=== PATIENT | female | born 1975 | race Caucasian/White ===

== ENCOUNTER 2023-03-04 07:50 | Day surgery (SDC) | payer OTHER, SELFPAY ==
[2023-03-04] VITALS (20 sets, daily range): BP systolic 91–122; BP diastolic 58–93; PULSE 53–85; RESP 16–20; TEMP 35.9–37; O2SAT 86–99; BMI 21.4
--- NOTE | 2023-03-04 | CRLHL7_ITS ---
For Patients: As a result of the Century Cures Act, medical imaging exams and procedure reports are released immediately into your electronic medical record. You may view this report before your referring provider. If you have questions, please contact your health care provider. PLEASE SEE LEFT BREAST WIRE LOCALIZATION OF SAME DAY. CRL:david DAI/Dictated by: Terry Callaway MD @ 03/04/2023 12:37:00 PM (Electronically Signed)
[2023-03-04 08:12] LABS: Ur HCG Qualitative* Negative (Negative)
[2023-03-04] MEDS: LACTATED RINGERS 1000 ML 1,000 ML 100 ML IV (08:40)
[2023-03-04] MEDS: ETHYL CHLORIDE 1 APPLICATION 1 APPLIC TOPICAL (08:41)
[2023-03-04] MEDS: SODIUM CHLORIDE 0.9 % (FLUSH) 10 ML SYRINGE IVF (08:41)
--- NOTE | 2023-03-04 09:00 | CRLHL7_ITS ---
For Patients: As a result of the Century Cures Act, medical imaging exams and procedure reports are released immediately into your electronic medical record. You may view this report before your referring provider. If you have questions, please contact your health care provider. INDICATION: Malignant neoplasm of the LEFT breast. Injection for sentinel lymph node scintigraphy. PROCEDURE: The on-site staff obtained informed consent. The on-site staff utilized sterile technique. Subsequently, the on-site staff injected 470 microcuries of technetium-filtered sulfur colloid within an intradermal location of the left periareolar breast. No immediate complications were documented. No subsequent imaging. IMPRESSION: LEFT breast injection for sentinel lymph node scintigraphy. Dictated by Ethan Donovan MD @ 03/04/2023 2:18:46 PM DAI/Dictated by: Ethan Donovan MD @ 03/04/2023 12:48:00 PM (Electronically Signed)
--- NOTE | 2023-03-04 09:15 | CRLHL7_ITS ---
For Patients: As a result of the Cures Act, medical imaging exams and procedure reports are released immediately into your electronic medical record. You may view this report before your referring provider. If you have questions, please contact your health care provider. LEFT AXILLARY LYMPH NODE WIRE LOCALIZATION USING ULTRASOUND GUIDANCE CLINICAL HISTORY: LEFT BREAST CANCER, PRESENTS FOR DEFINITIVE SURGICAL TREATMENT LATERALITY: LEFT axilla. LESION: Previously biopsied LEFT axillary lymph node. LOCALIZATION WIRE: [place] hookwire. TECHNIQUE: The localization wire was placed using real-time ultrasound guidance with image documentation. Cranial-caudal and medial-lateral digital mammograms were obtained after localization wire placement. CONSENT and TIME OUT: The procedure, risks, and alternatives were explained to the patient and a consent was signed. [place] Protocol was followed including pre-procedure verification that relevant information/documentation was available, reviewed and properly matched to the patient; consent accurate and complete; and equipment and supplies available. Time Out was conducted just prior to starting procedure to verify the four required elements: patient identity, correct side/site marked (if applicable), procedure, relevant images/results properly labeled and displayed (if applicable). PROCEDURE: The skin was prepped with ChloraPrep and 5 cc of 1% lidocaine was injected for local anesthesia. The localization wire was placed within or near the targeted left axillary lymph node lesion using ultrasound guidance. The patient tolerated the procedure well. PROXIMITY OF WIRE TO LESION: The wire is present within the lymph node adjacent to the clip. IMPRESSION: Successful LEFT axillary lymph wire localization. ACR not applicable Dictated by Terry Callaway MD @ 03/04/2023 10:23:40 AM/david DAI/Dictated by: Terry Callaway MD @ 03/04/2023 10:23:00 AM (Electronically Signed)
[2023-03-04] MEDS: CEFAZOLIN 1 GM inj IVP (11:29)
[2023-03-04] MEDS: ISOSULFAN BLUE 5 ML VIAL INJECTION (11:36)
--- NOTE | 2023-03-04 11:39 | PM.GSPRC ---
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 Post-op diagnosis: Same Type of Procedure: 1. Bilateral skin sparing mastectomy 2. Left axillary sentinel node biopsy 3. Left axillary node biopsy with preoperative wire localization 4. Left axillary dissection Indications: The patient is a 47-year-old female who has left-sided invasive ductal carcinoma, ERPR positive, HER2 negative. She is status post neoadjuvant chemotherapy at an outside facility. This was done for the extensive tumor as well as positive lymph nodes. She has completed her neoadjuvant chemotherapy and presented to discuss surgical options. She was interested in mastectomy with reconstruction as the tumor was felt to extensive for lumpectomy given her breast size. Because she is a smoker, and may need radiation, it was felt that delayed reconstruction would be the best option for her. Procedure Description: After discussion of risks and benefits, the patient was brought to the operating room and placed supine on the operating table. General anesthesia was induced. 1 hr to incision, radiotracer was injected into the dermis the left breast just above the areola. 10 min prior to the incision I injected 3 ml isosulfan blue dye into the dermis above the areola. This was massaged for 3 min. Once this was completed, the area was prepped and draped sterilely. A time-out was then completed. We began on the left side. A transverse incision was created using the markings which had been created by the patient's plastic surgeon preoperatively. Subcutaneous flaps were created using cautery. Care was taken to stay in the avascular plane between the breast tissue in the subcutaneous tissue. Dissection was taken superiorly to the clavicle, medially to the sternum, inferiorly to the inframammary fold, and laterally to the latissimus. Once the flaps were created, the breast was taken off of the chest wall, taking the pectoralis fascia with. Small bleeding vessels were cauterized. This was marked with a stitch at the superior aspect and sent for margins. The pathologist noted a chemo response, however there was an area of DCIS which appeared to be close to the anterior superior margin on the lateral aspect. Because there was concern on imaging of the proximity of the tumor to the skin, based on the location of the area of concern, I elected to excise another 2 cm of skin overlying this area. I did examine the specimen with the pathologist to confirm that the skin that I plan to excise was over the area of concern. A knife was then used to re-excise this margin. I then marked this v-shaped excision with a single stitch superiorly and a double stitch laterally. This was sent to pathology for permanent section. Attention was then turned to the sentinel lymph node biopsy. The probe was brought into the field. A strong signal was noted and dissection was taken down through the clavipectoral fascia into the axillary fat. I 1st identified the wire localize node and pulled the wire through the skin into the wound. I traced this down until a node was encountered. This node did have a very strong signal of 2000. This was removed and sent 1st to x-ray for specimen mammography to confirm that the clip was present, and for frozen section. X-ray did confirm the clip was present. In the meantime I examined the axilla. The signal was less than 200, however I did see a blue lymphatic channel and dissecting this down I identified a small lymph node which had a weak signal of 150. This was dissected out and sent as sentinel lymph node 2. Once this was done there was no further signal in the axilla and there were no further lymphatic channels to blue nodes. The frozen section on the sentinel lymph node returned positive for cancer and therefore an axillary dissection was performed. The pectoralis major muscle was retracted medially and the lateral aspect of pectoralis minor was similarly retracted medially. The axillary fat was gently teased down from the axillary vein, identifying it as the superior border of the dissection. A small branching vein was ligated with Vicryl. Once identifying the superior border, dissection proceeded medially. The maylin tissue was dissected free of the chest wall, identifying the serratus muscle with care to avoid the long thoracic nerve. Thoracodorsal nerve was identified posteriorly and in the middle. This was preserved as the maylin tissue was dissected free from it. The maylin tissue was dissected free posterior laterally on the latissimus muscle. An intercostal brachial nerves were attempted to be spared however because they intersected the specimen, 1 of the nerves had to be divided. Small clips as well as ties were used to divide and ligate small bleeding vessels. Clips were also used to ligate lymphatic channels. This tissue was then sent to pathology as axillary node dissection. I then turned my attention to the right side. A new set of instruments were used and also our outer gloves were changed. An identical incision was made and dissection was taken down into the subcutaneous tissue creating skin flaps superiorly to the clavicle, medially to the sternum, inferiorly to the superior rectus sheath and laterally to the latissimus. The breast tissue was then removed from the pectoralis muscle, taking the pectoralis fascia. Hemostasis was achieved with cautery. A stitch was placed to orient the specimen and it was sent to pathology. Drains were placed - one 15 Filipino drain in the right chest, one in the left chest space and one in the left axilla. These were secured in place with nylon suture. The wounds were then closed with interrupted Vicryl dermal suture and Monocryl running subcuticular suture. Sterile dressings were applied. Instrument sponge and needle counts were correct. The patient was then woken and transported to the recovery area in stable condition. ? The patient tolerated the procedure well. Findings: 1. Left mastectomy specimen with close margins to the skin anterior laterally; skin resected in this area after examining the specimen with the pathologist. 2. Left axillary sentinel node 1 which was the previously biopsied wire localize node did have a 2 mm focus of metastatic cancer 3. Left axillary wire localized node confirmed on x-ray to contain the biopsy clip. 4. left axillary sentinel node 2 negative for metastatic carcinoma 5. Right breast without any obvious abnormalities. Implants: Drains: 15 Filipino right chest wall drain 15 Filipino left chest wall drain 15 Filipino left axillary drain Anesthesia: GETA Surgeon: Johana Gil MD Estimated blood loss (mL): 100 Specimen: Other Additional Specimen Information: 1. Left breast, stitch superior 2. [place] lymph node 1/wire localize node 3. [place] lymph node 2. 4. Right breast, stitch superior 5. Re-excision of left breast anterior lateral/superior margin. Single stitch superior, double stitch lateral 6. Left axillary dissect Condition: stable Disposition: PACU Date of procedure: 03/04/23 [place] Node Biopsy for Breast Cancer Operation Performed with Curative Intent: Yes Tracers used to Identify sentinel nodes in the upfront surgery (non-neoadjuvant) setting: N/A Tracers used to identify sentinel nodes in the neoadjuvant setting: Dye and Radioactive Tracer All nodes (colored or non-colored) present at the end of a dye filled lymphatic channel were removed: Yes All significantly radioactive nodes were removed: Yes All palpably suspicious nodes were removed: Yes Biopsy proven positive nodes marked with clips prior to chemotherapy were identified and removed: Yes Axillary Lymph Node Dissection Operation Performed with Curative Intent: Yes Resection performed within the boundaries of axillary vein, serratus anterior, & latissimus dorsi: Yes Nerves Identified & Preserved during Dissection: Long Thoracic Nerve and Thoracodorsal Nerve Attempts were made to spare the intercostal brachial cutaneous nerves during dissection: Yes Level III Nodes were removed: No
--- NOTE | 2023-03-04 12:28 | CRLHL7_ITS ---
For Patients: As a result of the Cures Act, medical imaging exams and procedure reports are released immediately into your electronic medical record. You may view this report before your referring provider. If you have questions, please contact your health care provider. LEFT AXILLARY NODE SPECIMEN CLINICAL HISTORY: LEFT axillary lymph node resection. COMPARISON: 01/08/2023. FINDINGS: Two views of the specimen film submitted. The specimen contains the previously biopsied lymph node along with the biopsy clip and localization wire. IMPRESSION: The specimen contains the biopsied mass, biopsy clip and localization wire. ACR not applicable. Dictated by Terry Callaway MD @ 03/05/2023 12:24:00 PM/david DAI/Dictated by: Terry Callaway MD @ 03/05/2023 12:24:00 PM (Electronically Signed)
--- NOTE | 2023-03-04 13:34 | W.PM.NB ---
Nerve Block Nerve Block Time Seen by Provider: Date Seen: 03/04/23 Type of block requested by surgeon for post-operative analgesia: intercostal and intercostal add on Side: bilateral Time out performed: Yes Verification of patient name: Yes Verification of date of : Yes Site marking: site marked Name of person performing procedure: Bobby Continuous monitoring Was continuous monitoring of O2 sat, B/P, monitoring tech, recorded every 15 minutes?: Yes Procedure Checklist: sterile prep, needles and gloves Ultrasound guided. Images saved: Yes Medications given in 5ml increments after negative aspiration: Marcaine %: 0.25 mL: 30 Needle gauge: 20 and Exparel mL: 10 Needle gauge: 20 Patient tolerated procedure well: Yes Block Charges Block Charge (with Pro Fee): Intercostal Nerve Block Use of Ultrasound Machine for Block: Yes- US Guidance/pain block
--- NOTE | 2023-03-04 13:36 | W.ANESCHARGE ---
Anesthesia Charges Start Date/Time Anesthesia Start Date: 03/04/23 Anesthesia Start Time: 11:10 Stop Date/Time Anesthesia Stop Date: 03/04/23 Anesthesia Stop Time: 16:00
--- NOTE | 2023-03-04 16:20 | W.ANESCHARGE ---
Anesthesia Charges Start Date/Time Anesthesia Start Date: 03/04/23 Anesthesia Start Time: 11:10 Stop Date/Time Anesthesia Stop Date: 03/04/23 Anesthesia Stop Time: 16:00
[2023-03-04] MEDS: fentaNYL 100 MCG/2 ML inj 50 MCG IVP (16:23)
[2023-03-04] MEDS: HYDROmorphone 0.5 mg/0.5 ml inj IVP (17:39)
[2023-03-04] MEDS: LACTATED RINGERS 1000 ML 1,000 ML 125 ML IV (17:39)
[2023-03-04] MEDS: NICOTINE 14 mg PATCH 1 PATCH TRANSDERMA (19:00)
[2023-03-04] MEDS: HYDROCODONE-ACETAMIN 5-325 MG 1 TAB PO (21:43)
--- NOTE | 2023-03-04 21:53 | PC.NURSE ---
Pt returned from PACU drowsy, oriented to self and situation. Verbalized 6/10 pain, 0.5mg Dilaudid was given IVP. BP's WNL, HR occasionally briefly bradycardic as low as 53 bpm. Pt did desat to 87% on RA, she was placed on 1-2L/O2 via NC and SpO2 is now 92-95%. Jacky wrap to chest intact, dressings beneath JACKY wrap C,D,&I. Ice pack's placed on chest/left axilla as tolerated. [address] and labeled. DEMI 1 & 3 have had minimal bloody output while DEMI 2 has had Advanced to regular diet without difficulty. Pt initially up to BSC with assist x2, this was well tolerated. She is now ambulating to the BR with SBA and continues to have adequate urine output. Family in to visit her at bedside this evening and she plans to discharge to home with her family tomorrow.
[2023-03-05] MEDS: diphenhydrAMINE 50 MG/ML inj 25 MG IVP (00:27)
[2023-03-05] MEDS: LACTATED RINGERS 1000 ML 1,000 ML 125 ML IV ×2 (00:30→09:30)
[2023-03-05] MEDS: HYDROCODONE-ACETAMIN 5-325 MG 1 TAB PO ×2 (02:47→08:17)
[2023-03-05 03:00] VITALS: BP 131/89; PULSE 76; RESP 16; TEMP 36.4; O2SAT 99
--- NOTE | 2023-03-05 06:59 | PC.NURSE ---
End of Shift: Pt was pleasant and cooperative throughout shift, remained AO. Reported pain in chest between 6-8/10, [place] administered x1. DEMI drains patent and draining. Most output from DEMI #2 at 30cc. Pt independent in room, requires assistance with unhooking pulse ox and IV pole. Continent with bladder, no BM throughout shift. Dressings remained in place, CDI. O2 sats between 99-100 on RA.
[2023-03-05 07:00] VITALS: BP 118/74; PULSE 63; RESP 16; TEMP 36.4; O2SAT 100
--- NOTE | 2023-03-05 09:11 | PM.GSPN ---
Subjective Subjective Date Seen: 03/05/23 Interval history: Patient is doing okay postoperatively. Her pain is not well controlled with hydrocodone. She tolerated only some water and ice chips. Her drains are putting out minimal amount of bloody serosanguineous fluid. Exam Narrative: Exam Narrative: Chest: The chest was on the low wrapped because the dressing felt tight. Bilateral mastectomy incisions are with clean Steri is with no signs of expanding hematoma. The drains have dark bloody fluid in the bulbs. The chest was rewrapped snug with an Jacky wrap. Const: Vital Signs, click to edit/add: Vital Signs - 24 hr 03/04/23 15:53 03/04/23 15:58 03/04/23 16:05 Temperature 98.6 F Pulse Rate 85 78 70 Pulse Rate [Left P ulse Oximeter] Respiratory Rate 16 16 16 Blood Pressure 107/88 114/92 H 122/85 Blood Pressure [Ri ght Arm] Pulse Oximetry 92 96 98 Oxygen Delivery Me thod Non Rebreather Mas k Non Rebreather Mas k Non Rebreather Mas k Oxygen Flow Rate 2 2 2 03/04/23 16:10 03/04/23 16:15 03/04/23 16:20 Temperature 98.4 F Pulse Rate 66 74 62 Pulse Rate [Left P ulse Oximeter] Respiratory Rate 16 16 16 Blood Pressure 115/93 H 120/84 122/80 Blood Pressure [Ri ght Arm] Pulse Oximetry 99 99 99 Oxygen Delivery Me thod Non Rebreather Mas k Non Rebreather Mas k Non Rebreather Mas k Oxygen Flow Rate 2 2 2 03/04/23 16:25 03/04/23 16:30 03/04/23 17:00 Temperature 98.4 F 96.9 F L Pulse Rate 64 66 Pulse Rate [Left P ulse Oximeter] 64 Respiratory Rate 16 16 16 Blood Pressure 115/82 120/84 Blood Pressure [Ri ght Arm] 114/78 Pulse Oximetry 99 99 94 Oxygen Delivery Me thod Non Rebreather Mas k Non Rebreather Mas k Room Air Oxygen Flow Rate 2 2 03/04/23 17:00 03/04/23 17:15 03/04/23 17:30 Temperature 96.7 F L 97.4 F L 97.5 F L Pulse Rate 53 L Pulse Rate [Left P ulse Oximeter] 66 72 Respiratory Rate 16 16 16 Blood Pressure Blood Pressure [Ri ght Arm] 110/58 L 116/83 111/83 Pulse Oximetry 86 L 92 Oxygen Delivery Me thod Room Air Room Air Room Air Oxygen Flow Rate 03/04/23 17:45 03/04/23 18:00 03/04/23 18:02 Temperature 97.8 F 97.8 F Pulse Rate Pulse Rate [Left P ulse Oximeter] 76 62 Respiratory Rate 16 16 Blood Pressure Blood Pressure [Ri ght Arm] 91/63 114/71 Pulse Oximetry 93 87 L 97 Oxygen Delivery Me thod Room Air Room Air Nasal Cannula Oxygen Flow Rate 2 03/04/23 19:00 03/04/23 20:00 03/04/23 21:00 Temperature Pulse Rate Pulse Rate [Left P ulse Oximeter] 63 54 L 68 Respiratory Rate 16 16 16 Blood Pressure Blood Pressure [Ri ght Arm] 109/78 112/80 92/63 Pulse Oximetry 95 94 94 Oxygen Delivery Me thod Nasal Cannula Nasal Cannula Nasal Cannula Oxygen Flow Rate 1 1 1 03/04/23 22:00 03/04/23 23:00 03/05/23 03:00 Temperature 97.6 F Pulse Rate Pulse Rate [Left P ulse Oximeter] 61 76 Respiratory Rate 16 16 16 Blood Pressure Blood Pressure [Ri ght Arm] 108/70 131/89 Pulse Oximetry 95 99 Oxygen Delivery Me thod Nasal Cannula Nasal Cannula Oxygen Flow Rate 1 Progress Note: A&P Assessment and plan (1) S/P bilateral mastectomy: Status: Acute Plan 47-year-old female s/p bilateral mastectomy and left axillary node dissection POD 1. Patient is doing well overall with minimal drainage in her bilateral drains. However, her pain is not well controlled with [place]. We will switch her to oxycodone and see if that improves her pain control. Patient will advance her diet as tolerated. Patient will be related to be discharged home when her pain is controlled with p.o. medications.
[2023-03-05 11:00] VITALS: BP 107/77; PULSE 61; RESP 16; TEMP 36.6; O2SAT 96
[2023-03-05] MEDS: OXYCODONE 5 MG TABLET PO (12:56)
--- NOTE | 2023-03-05 15:11 | P.DS_ITS ---
DS: Providers Provider Date Seen: 03/05/23 Primary care physician: Not a Local Provider Attending Physician on discharge: Johana Gil MD DS: Diagnosis Discharge Diagnosis (1) S/P bilateral mastectomy: Status: Acute DS: Summary Hospital Course Hospital Course: Patient was admitted to the hospital after she underwent bilateral mastectomy and left axillary node dissection. Patient did well postoperatively. Her pain was not controlled with [place] and she was switched to oxycodone. Patient's pain was better controlled. She was tolerating regular diet. Time Spent with Patient Time attestation: Total time spent providing and/or coordinating discharge services: Exam Narrative: Exam Narrative: Chest: mastectomy incisions are covered with dry and clean steries, there is no erythema or rash. No expanding hematomas. DEMI drains with dark bloody thin serosanguinous fluid in the bulbs. Const: Vital Signs, click to edit/add: Vital Signs - 24 hr 03/04/23 15:53 03/04/23 15:58 03/04/23 16:05 Temperature 98.6 F Pulse Rate 85 78 70 Pulse Rate [Left P ulse Oximeter] Respiratory Rate 16 16 16 Blood Pressure 107/88 114/92 H 122/85 Blood Pressure [Ri ght Arm] Pulse Oximetry 92 96 98 Oxygen Delivery Me thod Non Rebreather Mas k Non Rebreather Mas k Non Rebreather Mas k Oxygen Flow Rate 2 2 2 03/04/23 16:10 03/04/23 16:15 03/04/23 16:20 Temperature 98.4 F Pulse Rate 66 74 62 Pulse Rate [Left P ulse Oximeter] Respiratory Rate 16 16 16 Blood Pressure 115/93 H 120/84 122/80 Blood Pressure [Ri ght Arm] Pulse Oximetry 99 99 99 Oxygen Delivery Me thod Non Rebreather Mas k Non Rebreather Mas k Non Rebreather Mas k Oxygen Flow Rate 2 2 2 03/04/23 16:25 03/04/23 16:30 03/04/23 17:00 Temperature 98.4 F 96.9 F L Pulse Rate 64 66 Pulse Rate [Left P ulse Oximeter] 64 Respiratory Rate 16 16 16 Blood Pressure 115/82 120/84 Blood Pressure [Ri ght Arm] 114/78 Pulse Oximetry 99 99 94 Oxygen Delivery Me thod Non Rebreather Mas k Non Rebreather Mas k Room Air Oxygen Flow Rate 2 2 03/04/23 17:00 03/04/23 17:15 03/04/23 17:30 Temperature 96.7 F L 97.4 F L 97.5 F L Pulse Rate 53 L Pulse Rate [Left P ulse Oximeter] 66 72 Respiratory Rate 16 16 16 Blood Pressure Blood Pressure [Ri ght Arm] 110/58 L 116/83 111/83 Pulse Oximetry 86 L 92 Oxygen Delivery Me thod Room Air Room Air Room Air Oxygen Flow Rate 03/04/23 17:45 03/04/23 18:00 03/04/23 18:02 Temperature 97.8 F 97.8 F Pulse Rate Pulse Rate [Left P ulse Oximeter] 76 62 Respiratory Rate 16 16 Blood Pressure Blood Pressure [Ri ght Arm] 91/63 114/71 Pulse Oximetry 93 87 L 97 Oxygen Delivery Me thod Room Air Room Air Nasal Cannula Oxygen Flow Rate 2 03/04/23 19:00 03/04/23 20:00 03/04/23 21:00 Temperature Pulse Rate Pulse Rate [Left P ulse Oximeter] 63 54 L 68 Respiratory Rate 16 16 16 Blood Pressure Blood Pressure [Ri ght Arm] 109/78 112/80 92/63 Pulse Oximetry 95 94 94 Oxygen Delivery Me thod Nasal Cannula Nasal Cannula Nasal Cannula Oxygen Flow Rate 1 1 1 03/04/23 22:00 03/04/23 23:00 03/05/23 03:00 Temperature 97.6 F Pulse Rate Pulse Rate [Left P ulse Oximeter] 61 76 Respiratory Rate 16 16 16 Blood Pressure Blood Pressure [Ri ght Arm] 108/70 131/89 Pulse Oximetry 95 99 Oxygen Delivery Me thod Nasal Cannula Nasal Cannula Oxygen Flow Rate 1 Discharge Plan Discharge Disposition: Home, Self-Care Discharging Surgeon: Clarissa Rodas Follow-Up Appointment: 1.5 weeks [facility] Prescriptions: New oxycodone 5 mg capsule 5 mg PO Q6H PRN (Reason: pain) Qty: 25 0RF Continued multivitamin Tablet 1 tab PO DAILY acetaminophen [Tylenol Extra Strength] 500 mg tablet 500 mg PO Q6H PRN Activity Level: No strenuous activity Activity Detail: No lifting more than 20 lb for 4 weeks. Avoid raising arms over your head, particularly your left arm. Use laxatives like Miralax or Senna daily for the first week after surgery to avoid constipation. Discharge Diet: Regular Patient Instructions: Oxycodone, Rapid Release (By mouth), Renzo-[place] Drain Care (DC), Mastectomy (DC) Additional Instructions: Wound care: Your sutures are under the skin and will dissolve over time. Leave steri strips (white bandages) over incisions until they fall off (or remove after 7 days). Keep chest wrapped with Jacky wrap until drains are removed. If there is no drainage, you do not need to replace the gauze. OK to shower tomorrow but avoid bathing, soaking or swimming for 2 weeks. Pat the incisions dry. No need to wash or scrub the area. Cover drain sites with Saran wrap when you shower. Apply ice to the area as needed for swelling. It is also OK to use a heating pad if this provides more comfort to you. Drain care: Empty and record drain output at least daily. Record each drain separately. Bring this information with you when you follow-up with Dr. Gil in clinic on the . Change gauze around drain sites daily Pain control: You were prescribed a pain medication. This medication contains acetaminophen (Tylenol). If you are taking your prescribed pain pills 4 times daily, do not take additional acetaminophen. As your pain improves, you can try taking acetaminophen instead of the prescribed pain pill. It is ok to take Ibuprofen or Naproxen (per directions on packaging). This medication helps with inflammation and swelling. Take an [id number] stool softener while you are taking prescribed pain medications to help alleviate constipation. I recommend Senna and/or Colace. Take as directed on package. If you have not had a bowel movement in 3 days, try taking Miralax as directed on the package. All of these are available over the counter. Follow-up Follow up with Dr. Gil in 1.5 weeks Please call if you are experiencing severe pain, nausea, vomiting, difficulty urinating, fever or have not had bowel movement in 4 days after surgery. Forms: Work/School Release Follow-up: Johana Gil MD [Staff Physician] - 03/16/23 9:00 am ([facility] for follow-up.) Provider,Not a Local [Primary Care Provider] - Discharge Orders: Discharge Order (Routine); Ordered 03/04/23 Ordered By: Johana Gil
[2023-03-05] MEDS: ACETAMINOPHEN 325 MG TABLET 650 MG PO (16:34)
--- NOTE | 2023-03-05 18:02 | PC.NURSE ---
Discharge - Pt alert, oriented, and cooperative during shift. Pt independent in room, bathroom. Continent of bowel and bladder, tolerating RA and regular diet. Pt denied nausea, dizziness, headache, SOB. Pt reported pain as 6/10, managed with interventions in MAR with verbalized improvement. DEMI drains stripped, drained, volume measured, and recorded in chart. Dressing clean, dry, and intact. VSS, afebrile. Pt reported itching of skin related to adhesive product contact. MD notified, recommended interventions and follow-up steps explained to pt with verbalized understanding. Washed, dried, and moisturized areas of irritation after adhesive removal. Provided pt with education regarding DEMI drain stripping and measurement, pain management, and dressing change. Pt demonstrated appropriate technique and verbalized understanding. Discharge documents reviewed and signed. IV removed with catheter intact. Pt discharged to home with spouse at approximately 1700.
== END 2023-03-05 17:00 | disposition home or self-care (01) ==
LOC: OR 07:51 → MEDSURG 07:51
PROVIDERS: Visit Provider Surgery
PROC: (CPT 19303; principal; 2023-03-04 10:45)
PROC: (CPT 19303; 2023-03-04 10:45)
DX: C50.912 Malignant neoplasm of unspecified site of left female breast (principal); C77.3 Secondary and unspecified malignant neoplasm of axilla and upper limb lymph nodes; Z17.0 Estrogen receptor positive status [ER+]; G89.18 Other acute postprocedural pain
CPT/HCPCS: 19303; 38525; 01610; 10035; 38792; 64420; 64421; 76942; 77065; 81025; 88307; 88309; 88341; 88342; 88360; 88361; 88377; A9270; A9541; C1769; C9290; J0665; J0690; J1100; J1170; J1200; J2250; J2405; J2704; J3010; J7120; S4990

== ENCOUNTER 2023-03-27 15:02 | Emergency (ER) | payer OTHER, SELFPAY ==
[2023-03-27 15:07] VITALS: BP 102/61; PULSE 85; RESP 18; TEMP 36.8; O2SAT 97; BMI 20.4
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
[2023-03-27] MEDS: MORPHINE 10 MG/ML inj IM (15:38)
== END 2023-03-27 15:44 | disposition home or self-care (01) ==
LOC: ED 15:34
PROVIDERS: Emergency Provider Family Medicine
DX: G89.18 Other acute postprocedural pain (principal); C50.912 Malignant neoplasm of unspecified site of left female breast
CPT/HCPCS: 96372; 99283; 99284; J2270

== ENCOUNTER 2023-03-28 00:34 | Observation (INO) | payer OTHER, SELFPAY ==
[2023-03-28] VITALS (8 sets, daily range): BP systolic 93–121; BP diastolic 56–78; PULSE 62–75; RESP 16–20; TEMP 36.6–36.8; O2SAT 95–99; BMI 20.4; BMI 21.8
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
[2023-03-28] MEDS: MORPHINE 10 MG/ML inj IM (01:04)
[2023-03-28] MEDS: KETAMINE HCL 100 MG/ML inj 20 MG IVPB (01:47)
[2023-03-28] MEDS: LORazepam 2 MG/ML inj 0.5 MG IVP (01:55)
[2023-03-28 02:53] LABS: Basophils Absolute Auto 0.02 K/uL (0.00-0.30); Basophils Percent Auto 0.3 % (0.0-3.0); Eosinophils Absolute Auto 0.14 K/uL (0.00-0.50); Eosinophils Percent Auto 1.9 % (0.0-7.0); Hematocrit 33.1 % (33.0-51.0); Hemoglobin* 10.6 gm/dL (12.0-16.0); Immature Granulocytes Abs Auto 0.01 K/uL (0.00-0.30); Immature Granulocytes Pct Auto 0.1 %; Lymphocytes Absolute Auto 1.93 K/uL (0.90-2.90); Lymphocytes Percent Auto 26.7 % (20-44); Mean Corpuscular HGB Conc 32 gm/dL (32-36); Mean Corpuscular Hemoglobin 33 pg (26-34); Mean Corpuscular Volume 102 fL (80-100); Monocytes Percent Auto 9.3 % (0.0-11.0); Neutrophils Absolute Auto 4.45 K/uL (1.7-7.0); Neutrophils Percent Auto 61.7 % (42.0-72.0); Platelet Count* 183 K/uL (140-440); Red Blood Count 3.26 m/uL (4.00-5.20); Slide Review Reflex No; White Blood Count* 7.22 K/uL (4.50-11.00)
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
[2023-03-28 03:05] LABS: Chloride* 104 mmol/L (96-114); Potassium* 4.2 mmol/L (3.6-5.1); Sodium* 137 mmol/L (135-149)
[2023-03-28 03:08] LABS: Creatinine* 0.6 mg/dL (0.5-1.5); Est. Creatinine Clearance* 105.58; Estimated Glomerular Filt Rate 110 ml/min
[2023-03-28 03:09] LABS: Anion Gap 5 mEq/L (7-15); Blood Urea Nitrogen* 16 mg/dL (5-24); Calcium* 9.2 mg/dL (8.4-10.6); Carbon Dioxide* 28 mmol/L (20-32); Glucose* 93 mg/dL (60-115)
[2023-03-28 03:12] LABS: C Reactive Protein* 1.9 mg/dL (0.5-1.0)
[2023-03-28] MEDS: HYDROmorphone 0.5 mg/0.5 ml inj IVP ×2 (03:57→08:53)
[2023-03-28] MEDS: NICOTINE 14 mg PATCH 1 PATCH TRANSDERMA (06:51)
--- NOTE | 2023-03-28 07:03 | PC.NURSE ---
Arrived to floor at 0310 with . A&O. Reporting pain at surgical site 11/02. See eMAR for intervention. DEMI drains to right and left side patent and draining serosanguineous fluid. Denies n/v, lightheadedness or dizziness. SBA in room. VSS w/ sats >90% on RA. JOHN PAUL wrap to chest c/d/i. Nicotine patch placed to left shoulder. Tolerating diet. Uses call light appropriately.
[2023-03-28] MEDS: ACETAMINOPHEN 325 MG TABLET PO (07:58)
[2023-03-28] MEDS: DOCUSATE SODIUM 100 MG CAPSULE PO (10:03)
--- NOTE | 2023-03-28 11:31 | PM.DS1 ---
DS: Providers Provider Date Seen: 03/28/23 Date of admission: 03/28/23 02:54 Primary care physician: Not a Local Provider Admitting Clinician: Radhames Whitlock MD Consults: General Surgery Attending Physician on discharge: Radhames Whitlock MD Date of Discharge: 03/28/23 DS: Diagnosis Discharge Diagnosis (1) Left breast cancer with T3 tumor, >5 cm in greatest dimension: Status: Acute Problem details: Had chemo. Bilateral mastectomy scheduled for 03/04/23 Dr. Gil. (2) Post-op pain: Status: Acute Problem details: Post-op pain after reconstruction done on 03/26/23 at OSH (3) S/P bilateral mastectomy: Status: Acute Problem details: 02/2023, reconstruction 03/26/23 DS: Summary Hospital Course Hospital Course: The patient is a 47-year-old female with left-sided breast cancer metastatic to axillary lymph nodes status post neoadjuvant chemotherapy and bilateral mastectomy with left axillary dissection, who underwent bilateral breast reconstruction with tissue lpn private duty placement at an outside hospital on 03/26/2023. Postoperatively she had significant pain starting on postop day 1. She presented to the emergency department and was discharged home with oral Dilaudid. Unfortunately her pain continued to worsen and she was sent back to the emergency department. She was admitted to the hospital for pain control. She received ketamine and morphine in the ER which helped. It appeared as though her on Q pumps were not working. On the day of discharge which was also the day of admission, the patient felt that her pain had gone from a 10/10 to a 4/10. The pump catheter was flushed by myself and reconnected, which will hopefully cause it to begin working. She has received Tylenol as well as a dose of Dilaudid IV. I recommended transitioning to oral meds throughout the course of the day prior to discharge, however the patient felt significantly better and preferred to discharge home. Time Spent with Patient Time attestation: Total time spent providing and/or coordinating discharge services: Exam Narrative: Exam Narrative: General appearance: Alert, cooperative, and in no distress Eyes: PERRLA, eye lids clear, and sclera white HENT Head: Normocephalic Ears: External ears normal Pulmonary: Breathing nonlabored on room air Chest: Incisions without erythema or ecchymosis. Tissue expanders in place. No swelling or sign of hematoma. Bilateral drains present. 70 mL of serosanguineous output overnight. On Q pumps present. The bulb is tense and has not been working. Using sterile technique I disconnected the catheters from the bulb and flush 10 mL of 0.5% Marcaine in each catheter. After slight resistance on each side initially which improved upon slow injection of Marcaine, the catheters then flowed easily. The patient did have improvement in her symptoms with this as well. It did appear as though the pump was dripping while it was disconnected, though this could have been simply fluid draining from the tube itself rather than being pumped. Cardiovascular Heart: Regular rate Extremities: warm and well perfused Musculoskeletal: Extremities: Upper: Both upper extremities have normal joint range of motion and intact strength. Lower: Both lower extremities have normal joint range of motion and intact strength. Skin: Normal skin color, texture, and turgor. Neurologic: No focal deficits Psychiatric: Alert, oriented, cooperative, normal affect. Const: Vital Signs, click to edit/add: Vital Signs - 24 hr 03/28/23 00:39 03/28/23 00:39 03/28/23 01:44 Temperature 97.9 F 98.2 F Pulse Rate [Pulse Oximeter] Pulse Rate [Right Pulse Oximeter] 74 70 Respiratory Rate 20 20 Respiratory Rate [ Breast] 18 Blood Pressure [Ri ght Arm] Blood Pressure [Ri ght Upper Arm] 113/78 121/70 Pulse Oximetry 99 99 [facility] Room Air 03/28/23 01:49 03/28/23 03:17 03/28/23 03:17 Temperature 98.2 F Pulse Rate [Pulse Oximeter] Pulse Rate [Right Pulse Oximeter] 75 Respiratory Rate 20 Respiratory Rate [ Breast] Blood Pressure [Ri ght Arm] Blood Pressure [Ri ght Upper Arm] 117/65 Pulse Oximetry 98 98 96 Oxygen Delivery Me thod Room Air 03/28/23 03:19 03/28/23 03:50 03/28/23 06:31 Temperature 98.2 F 98.3 F Pulse Rate [Pulse Oximeter] 70 Pulse Rate [Right Pulse Oximeter] 75 Respiratory Rate 20 16 Respiratory Rate [ Breast] Blood Pressure [Ri ght Arm] 106/68 93/63 Blood Pressure [Ri ght Upper Arm] 117/65 Pulse Oximetry 95 Oxygen Delivery Me thod Room Air 03/28/23 08:39 Temperature 97.9 F Pulse Rate [Pulse Oximeter] 62 Pulse Rate [Right Pulse Oximeter] Respiratory Rate 18 Respiratory Rate [ Breast] Blood Pressure [Ri ght Arm] 94/56 L Blood Pressure [Ri ght Upper Arm] Pulse Oximetry 97 Oxygen Delivery Me thod Room Air DS: Data Data Completed and Pending Labs on day of discharge: Labs from last 24 hours 03/28/23 02:45 WBC 7.22 RBC 3.26 L Hgb 10.6 L Hct 33.1 MCV 102 H MCH 33 MCHC 32 RDW Coeff of Gayle 12.0 Plt Count 183 Neut % (Auto) 61.7 Lymph % (Auto) 26.7 [place] % (Auto) 9.3 Eos % (Auto) 1.9 Baso % (Auto) 0.3 Neut # (Auto) 4.45 Lymph # (Auto) 1.93 [place] # (Auto) 0.70 Eos # (Auto) 0.14 Baso # (Auto) 0.02 Abs Immat Gran (auto) 0.01 Imm/Tot Granulo (auto) 0.1 Sodium 137 Potassium 4.2 Chloride 104 Carbon Dioxide 28 Anion Gap 5 L BUN 16 Creatinine 0.6 Estimated Creat Clear 105.58 Estimated GFR 110 Glucose 93 Calcium 9.2 C-Reactive Protein 1.9 H Discharge Plan Discharge Disposition: Home, Self-Care Date of Admission: 03/28/23 02:54 Primary Care Provider: Provider,Not a Local Condition: Stable Anticipated Discharge Date/Time: 03/28/23 11:22 Discharge Medications: Continued ibuprofen 200 mg capsule 200 mg PO Q6H PRN multivitamin Tablet 1 tab PO DAILY acetaminophen [Tylenol Extra Strength] 500 mg tablet 500 mg PO Q6H PRN Held hydromorphone [Dilaudid] 4 mg tablet 4 mg PO Q6H PRN (Reason: pain) Qty: 14 0RF Hold Instructions: Resume on 04/02/23. If you are taking the Percocet (Oxycodone/Acetaminophen) prescribed by Dr. George, do not take this medication at the same time. If you feel the Percocet is not working, you may SWITCH to this medication. Discharge Orders: Discharge Order (Routine); Ordered 12/03/23 Ordered By: Johana Gil Patient Education: Acetaminophen (By mouth), Ibuprofen (By mouth), Multivitamins, Adult Formula (By mouth), Cigarette Smoking and Your Health (GEN), Pain Management (DC) Additional Instructions: Wound care: Follow Dr. George's wound and drain care instructions. Pain control: Take Percocet (Oxycodone/Acetaminophen) as prescribed by Dr. George for pain. This medication contains acetaminophen (Tylenol). If you are taking your prescribed pain pills 4 times daily, do not take additional acetaminophen. As your pain improves, you can try taking acetaminophen instead of the prescribed pain pill. It is ok to take Ibuprofen or Naproxen (per directions on packaging). This medication helps with inflammation and swelling. You were prescribed a medication called Hydromorphone (Dilaudid) in the OR. If you feel the Percocet is not working, you may SWITCH to this medication however, DO NOT take it at the same time as the Percocet (Oxycodone/Acetaminophen) prescribed by Dr. George. Take an [id number] stool softener while you are taking prescribed pain medications to help alleviate constipation. I recommend Senna and/or Colace. Take as directed on package. If you have not had a bowel movement in 3 days, try taking Miralax as directed on the package. All of these are available over the counter. Follow-up Follow up with Dr. George on Wednesday as planned Please call if you are experiencing severe pain, nausea, vomiting, difficulty urinating, fever or have not had bowel movement in 4 days after surgery. Activity Level: No strenuous activity Activity Detail: Follow lifting instructions per Dr. George Discharge Diet: Regular Follow Up Appointments: Provider,Not a Local [Primary Care Provider] - Forms: Cloud[employer] Info Instructions
[2023-03-28] MEDS: OXYCODONE 5 MG TABLET PO (11:35)
--- NOTE | 2023-03-28 12:13 | PC.NURSE ---
Discharge: This commercial real estate underwriter picked up this patient to discharge and previous RN was assigned CCU patient. Patient stable and packing up belongings in room. Patient with no IV, already removed. Discharge paper work reviewed and signed. Patient and spouse had no further questions regarding discharge. Previous RN Administered a dose of oxycodone before discharge. Patient left the floor by foot to home at 1203.
--- NOTE | 2023-03-28 13:43 | PC.NURSE ---
Shift Summary: Patient pleasant and cooperative. Up independently in room, BP soft, addressed issue with hospitalist and okay to still give Dilaudid this morning despite BP. Patient asymptomatic, denies dizziness/lightheadedness. Seen by , per MD give oxycodone prior to discharge, 5mg oxycodone given. Patient emptied bilat DEMI drains per self.
== END 2023-03-28 12:03 | disposition home or self-care (01) ==
LOC: ED 02:49 → MEDSURG 03:02
PROVIDERS: Admitting Provider Internal Medicine; Emergency Provider Family Medicine; Visit Provider Internal Medicine
DX: G89.18 Other acute postprocedural pain (principal); T85.695A Other mechanical complication of other nervous system device, implant or graft, initial encounter; F41.9 Anxiety disorder, unspecified; F33.9 Major depressive disorder, recurrent, unspecified; F10.11 Alcohol abuse, in remission; F17.210 Nicotine dependence, cigarettes, uncomplicated; C50.912 Malignant neoplasm of unspecified site of left female breast; Z87.828 Personal history of other (healed) physical injury and trauma; Z86.59 Personal history of other mental and behavioral disorders; Z98.891 History of uterine scar from previous surgery; Z98.51 Tubal ligation status; Z90.13 Acquired absence of bilateral breasts and nipples; Z98.890 Other specified postprocedural states
CPT/HCPCS: 36415; 80048; 85025; 86140; 94761; 96372; 96374; 96375; 99284; A9270; G0378; J1170; J2060; J2270; J3490; S4990

== ENCOUNTER 2025-01-08 09:13 | Outpatient (CLI) | payer OTHER, SELFPAY ==
[2025-01-10 03:37] LABS: HPV Source Cervical
[2025-01-10 19:34] LABS: HPV Genotype 16 by TMA Not Detected; HPV Genotype 18/45 by TMA Not Detected
[2025-01-16 10:21] LABS: Pap Test Digital Imaging Done; Pap Test Reviewed by Pathologi Done
== END 2025-01-08 09:14 | disposition home or self-care (01) ==
PROVIDERS: PCP Family Medicine; Visit Provider Family Medicine
DX: Z12.4 Encounter for screening for malignant neoplasm of cervix (principal); Z11.51 Encounter for screening for human papillomavirus (HPV)
CPT/HCPCS: 87624; 87625; 88141; 88142; 88175

== ENCOUNTER 2025-02-16 09:48 | Outpatient (CLI) | payer OTHER, SELFPAY ==
--- NOTE | 2025-02-16 10:57 | P.ANES_ITS ---
Anesthesia Charges Start Date/Time Anesthesia Start Date: 02/16/25 Anesthesia Start Time: 10:30 Stop Date/Time Anesthesia Stop Date: 02/16/25 Anesthesia Stop Time: 10:53 Coding CPT Codes CPT Codes: ANES LWR INTST SCR COLSC - [id number] ([id number]) P2 - PATIENT W/MILD SYST DISEASE, QZ - GOLF COURSE LABORER SVC W/O GLASS VIAL BENDING CONVEYOR FEEDER BY
--- NOTE | 2025-02-16 10:57 | W.ANESCHARGE ---
Anesthesia Charges Start Date/Time Anesthesia Start Date: 02/16/25 Anesthesia Start Time: 10:30 Stop Date/Time Anesthesia Stop Date: 02/16/25 Anesthesia Stop Time: 10:53 Coding CPT Codes CPT Codes: ANES LWR INTST SCR COLSC - [id number] ([id number]) P2 - PATIENT W/MILD SYST DISEASE, QZ - FIBER PICKER SVC W/O NEONATAL SPECIALIST BY
== END 2025-02-16 09:49 | disposition home or self-care (01) ==
LOC: OP CLINIC 09:49
PROVIDERS: PCP Family Medicine; Visit Provider Surgery
DX: Z12.11 Encounter for screening for malignant neoplasm of colon (principal)
CPT/HCPCS: 00812; 45378; J2704